=== PATIENT | female | born 1950 | race Caucasian/White ===

== ENCOUNTER 2017-03-04 09:08 | Emergency (ER) | payer MEDICARE, OTHER ==
[~2017-03-04] VITALS: Ht 157.5 cm; Wt 79.8 kg
[~2017-03-04 09:08] MED LIST: ACTOS15 MG OR; ADVIL200 MG OR; AMLODIPINE5 MG PO; AMOXICILLIN500 M1 OR; AMOXICILLIN500 MG OR; ASPIRIN81 M1 OR; ATENOLOL25 MG PO; AUGMENTIN875 MG OR; AVALIDE1 TA1 OR; BABY ASPIRIN81 MG PO; BACTRIM DS1 TAB OR; BACTRIM DS1 TAB PO; BACTROBAN2 % EX; BENAZEPRIL10 M1 PO; BENAZEPRIL5 MG PO; CIPRO500 MG OR; CLINDAMYCIN150 MG PO; CRESTOR20 MG PO; DIGITEK0.25 MG OR; ECOTRIN325 MG OR; ENALAPRIL2.5 MG OR; FLEXERIL OR; GLUCOTROL XL5 MG OR; HUMULIN R1 M1 SC; IRON; LIPITOR20 MG OR; LORTAB 5 OR; LORTAB5 OR; LOTENSIN HCT1 TA3 OR; MAGNESIUM200 MG OR; METFORMIN1000 MG PO; METFORMIN500 M1 OR; METOPROLOL25 MG OR; METOPROLOL50 MG OR; MYCOSTATIN100000 MG EX; NAPROSYN500 MG OR; NOVOLOG MIX100 U/ML SC; PEPCID AC20 MG OR; PLAVIX75 MG OR; PLAVIX75 MG PO; PRAVACHOL20 MG OR; SANTYL250 MG/GM EX; SIMVASTATIN5 MG OR; ST JOSEPH75 MG OR; ULTRAM50 MG OR; [UNRECOGNIZED DRUG - SUPPLY] EX
[2017-03-04 10:43] LABS: URINE BILIRUBIN - DIPSTICK NEGATIVE (NEGATIVE); URINE CLARITY CLEAR; URINE COLOR YELLOW; URINE GLUCOSE - DIPSTICK >=1000 mg/dL (NEGATIVE); URINE KETONE NEGATIVE (NEGATIVE); URINE LEUK ESTERASE TRACE (Negative); URINE NITRITE - DIPSTICK NEGATIVE (Negative); URINE PH 5.5 (4.5-8.0); URINE PROTEIN - DIPSTICK NEGATIVE (NEG-TRACE); URINE UROBILINOGEN - DIPSTICK 0.2 E.U./dL (0.2)
[2017-03-04 10:57] LABS: ALBUMIN 3.9 g/dL (3.2-5.0); ALKALINE PHOSPHATASE 51 u/l (38-126); ANION GAP 13 (6-22 (CALC)); BILIRUBIN, TOTAL 0.4 mg/dL (0.0-1.4); BUN 25 mg/dL (8-23); BUN/CREATININE RATIO 28 (12-20 (CALC)); CALCIUM 9.3 mg/dL (8.4-10.2); CARBON DIOXIDE 25 mmol/l (22-30); CHLORIDE 99 mmol/l (95-108); CREATININE 0.9 mg/dL (0.5-1.0); GFR > 60 ML/MIN (>=60 (CALC)); GFR FOR AFR.AMER. > 60 ML/MIN (>=60 (CALC)); GLUCOSE 405 mg/dL (82-115); HEMATOCRIT 32.4 % (37.0-47.0); HEMOGLOBIN 10.4 g/dl (12.0-16.0); IMMATURE GRANULOCYTES 0.4 % (0.0-1.0); MANUAL DIFFERENTIAL YES; MEAN CELL VOLUME 87.6 fL CALC (80.0-100.0); MEAN CORPUSCULAR HGB 28.1 pG CALC (26.0-32.0); MEAN CORPUSCULAR HGB CONC 32.1 g/L CALC (32.0-36.0); PLATELET COUNT 153 thou/uL (130-400); POTASSIUM 4.7 mmol/l (3.5-5.1); RED CELL DISTRI WIDTH 13.7 % (11.5-15.5); SGOT/AST 15 u/l (9-36); SGPT/ALT 29 u/l (11-66); SODIUM 132 mmol/l (137-146); TOTAL PROTEIN 6.4 g/dL (6.3-8.2)
[2017-03-04 11:23] LABS: URINE BLOOD DIPSTICK TRACE (NEGATIVE)
[2017-03-04 11:24] LABS: URINE EPITHELIAL CELLS RARE EPI/hpf (0-FEW); URINE RBC 0-2 RBC/hpf (0-5); URINE WBC 0-2 WBC/hpf (0-5)
[2017-03-04 12:07] VITALS: BP 167/63
== END 2017-03-04 12:45 | disposition home or self-care (01) ==
LOC: ED 09:08
PROVIDERS: Emergency Medicine
DX: E11.65 Type 2 diabetes mellitus with hyperglycemia (principal); Z91.14 Patient's other noncompliance with medication regimen; R22.32 Localized swelling, mass and lump, left upper limb

== ENCOUNTER 2018-02-26 17:46 | Emergency (ER) | payer MEDICARE, OTHER ==
[~2018-02-26] VITALS: Ht 154.9 cm; Wt 100.0 kg
[~2018-02-26 17:46] MED LIST changes: +ANASTROZOLE1 MG PO; +B-12 COMPL1000 MCG/M IM; +EMLA CREAM5 GM/TUBE EX; +GLUCOTROL5 MG PO; +JANUVIA50 MG PO; +LIPITOR20 MG PO; +LOTREL1 CA4 PO; +MAXZIDE-2537.5 MG/TA PO; +METOPROL TAR25 MG PO; +TRAMADOL HCL50 MG PO
[2018-02-26 18:46] LABS: HEMATOCRIT 34.4 % (37.0-47.0); HEMOGLOBIN 10.8 g/dl (12.0-16.0); IMMATURE GRANULOCYTES 0.3 % (0.0-1.0); MEAN CELL VOLUME 84.7 fL CALC (80.0-100.0); MEAN CORPUSCULAR HGB 26.6 pG CALC (26.0-32.0); MEAN CORPUSCULAR HGB CONC 31.4 g/L CALC (32.0-36.0); PLATELET COUNT 190 thou/uL (130-400); RED BLOOD COUNT 4.06 mill/uL (4.20-5.60); RED CELL DISTRI WIDTH 14.9 % (11.5-15.5)
[2018-02-26 19:04] LABS: ALBUMIN 4.2 g/dL (3.2-5.0); ALKALINE PHOSPHATASE 42 u/l (38-126); BILIRUBIN, TOTAL 0.3 mg/dL (0.0-1.4); BUN 30 mg/dL (8-23); BUN/CREATININE RATIO 24 (12-20 (CALC)); CARBON DIOXIDE 23 mmol/l (22-30); CHLORIDE 106 mmol/l (95-108); CREATININE 1.3 mg/dL (0.5-1.0); GFR 41 ML/MIN (>=60 (CALC)); GFR FOR AFR.AMER. 50 ML/MIN (>=60 (CALC)); SGOT/AST 13 u/l (9-36); SGPT/ALT 28 u/l (11-66); SODIUM 141 mmol/l (137-146); TOTAL PROTEIN 7.1 g/dL (6.3-8.2)
[2018-02-26 19:11] LABS: MANUAL DIFFERENTIAL YES
[2018-02-26 19:15] LABS: ANION GAP 17 (6-22 (CALC)); POTASSIUM 5.3 mmol/l (3.5-5.1)
[2018-02-26 19:16] LABS: MYOGLOBIN 38 ng/mL (0 - 62)
[2018-02-26 20:02] LABS: URINE BILIRUBIN - DIPSTICK NEGATIVE (NEGATIVE); URINE BLOOD DIPSTICK TRACE-INTACT (NEGATIVE); URINE COLOR YELLOW; URINE GLUCOSE - DIPSTICK NEGATIVE (NEGATIVE); URINE KETONE TRACE mg/dL (NEGATIVE); URINE NITRITE - DIPSTICK NEGATIVE (Negative); URINE PROTEIN - DIPSTICK NEGATIVE (NEG-TRACE); URINE UROBILINOGEN - DIPSTICK 0.2 E.U./dL (0.2)
[2018-02-26 20:05] LABS: URINE CLARITY SL CLOUDY; URINE LEUK ESTERASE MODERATE (NEGATIVE)
[2018-02-26 20:10] LABS: URINE SQUAMOUS EPITHELIAL CELL MODERATE EPI/hpf (0-FEW); URINE WBC 20-50 WBC/hpf (0-5)
[2018-02-26] MEDS ORDERED: MECLIZINE25 MG PO (20:16)
[2018-02-26] MEDS ORDERED: BACTRIM DS1 TAB PO (20:20)
[2018-02-26 20:24] VITALS: BP 129/64
== END 2018-02-26 20:33 | disposition home or self-care (01) ==
LOC: ED 17:46
PROVIDERS: Family Medicine
DX: H81.10 Benign paroxysmal vertigo, unspecified ear (principal); N30.90 Cystitis, unspecified without hematuria; I10 Essential (primary) hypertension; I25.10 Atherosclerotic heart disease of native coronary artery without angina pectoris; E11.9 Type 2 diabetes mellitus without complications; E78.5 Hyperlipidemia, unspecified; E53.9 Vitamin B deficiency, unspecified; C95.90 Leukemia, unspecified not having achieved remission; B96.20 Unspecified Escherichia coli [E. coli] as the cause of diseases classified elsewhere; Z86.73 Personal history of transient ischemic attack (TIA), and cerebral infarction without residual deficits; Z85.3 Personal history of malignant neoplasm of breast; Z95.1 Presence of aortocoronary bypass graft; R94.31 Abnormal electrocardiogram [ECG] [EKG]

== ENCOUNTER 2019-10-09 12:59 | Emergency (ER) | payer MEDICARE, OTHER ==
[~2019-10-09 12:59] MED LIST changes: +MECLIZINE25 MG PO
[2019-10-09] MEDS ORDERED: AZITHROMYCIN500 MG PO (13:39)
[2019-10-09] MEDS ORDERED: AMLOD/BENAZP1 CA5 PO (13:44)
[2019-10-09] MEDS ORDERED: AMLODIPINE BESY10 MG PO (13:45)
[2019-10-09] MEDS ORDERED: IBRANCE PO (13:45)
[2019-10-09] MEDS ORDERED: BENAZEPRIL40 M1 PO (13:46)
[2019-10-09] MEDS ORDERED: JANUVIA50 MG PO (13:46)
[2019-10-09] MEDS ORDERED: MAXZIDE PO (13:46)
[2019-10-09] MEDS ORDERED: METFORMIN HCL1000 MG PO (13:46)
[2019-10-09] MEDS ORDERED: LOPRESSOR25 M1 PO (13:46)
[2019-10-09] MEDS ORDERED: CLOPIDOGREL75 MG PO (13:47)
[2019-10-09 13:55] VITALS: BP 147/64
== END 2019-10-09 13:55 | disposition home or self-care (01) ==
LOC: ED 12:59
DX: J02.9 Acute pharyngitis, unspecified (principal); I10 Essential (primary) hypertension; I25.10 Atherosclerotic heart disease of native coronary artery without angina pectoris; E11.9 Type 2 diabetes mellitus without complications; C95.90 Leukemia, unspecified not having achieved remission; C50.912 Malignant neoplasm of unspecified site of left female breast; Z86.73 Personal history of transient ischemic attack (TIA), and cerebral infarction without residual deficits; Z95.1 Presence of aortocoronary bypass graft; Z79.899 Other long term (current) drug therapy; Z90.12 Acquired absence of left breast and nipple

== ENCOUNTER 2022-02-12 08:46 | Emergency (ER) | payer MEDICARE, OTHER ==
[~2022-02-12] VITALS: Ht 157.5 cm; Wt 74.5 kg
[2022-02-12] VITALS (60 sets, daily range): BP systolic 62–159; BP diastolic 27–81
[~2022-02-12 08:46] MED LIST changes: +AFINITOR10 MG PO; +AMLOD/BENAZP1 CA5 PO; +AMLODIPINE BESY10 MG PO; +AROMASIN25 MG PO; +AZITHROMYCIN500 MG PO; +BENAZEPRIL40 M1 PO; +CLOPIDOGREL75 MG PO; +DOXYCYCLINE100 MG PO; +GLIPIZIDE5 M2 PO; +IBRANCE PO; +JANUVIA100 MG PO; +LOPRESSOR25 M1 PO; +LOPRESSOR25 MG PO; +MAXZIDE PO; +MEDDOSEPAK PO; +METFORMIN HCL1000 MG PO; +METHIMAZOLE5 MG PO; +PROVENTIL0.083 % IN; +TAM75CAP PO; +TIZANIDINE2 MG PO
[2022-02-12 09:42] LABS: HEMATOCRIT 30.5 % (37.0-47.0); HEMOGLOBIN 9.7 g/dl (12.0-16.0); IMMATURE GRANULOCYTES 0.2 % (0.0-5.0); MEAN CELL VOLUME 92.7 fL CALC (80.0-100.0); MEAN CORPUSCULAR HGB 29.5 pG CALC (26.0-32.0); MEAN CORPUSCULAR HGB CONC 31.8 g/dL CAL (32.0-36.0); RED BLOOD COUNT 3.29 mill/uL (4.20-5.60); RED CELL DISTRI WIDTH 15.8 % (11.5-15.5)
[2022-02-12 09:46] LABS: BILIRUBIN, TOTAL 0.6 mg/dL (0.0-1.4); CREATININE 1.4 mg/dL (0.5-1.0); MAGNESIUM 1.9 mg/dL (1.6-2.3); POTASSIUM 4.3 mmol/l (3.5-5.1); TOTAL PROTEIN 5.5 g/dL (6.3-8.2)
[2022-02-12 09:47] LABS: PLATELET COUNT 122 thou/uL (130-400)
[2022-02-12 09:48] LABS: MANUAL DIFFERENTIAL YES
[2022-02-12 10:15] LABS: URINE BILIRUBIN - DIPSTICK NEGATIVE (NEGATIVE); URINE BLOOD DIPSTICK SMALL (NEGATIVE); URINE COLOR YELLOW; URINE GLUCOSE - DIPSTICK >=1000 mg/dL (NEGATIVE); URINE KETONE 40 mg/dL (NEGATIVE); URINE LEUK ESTERASE NEGATIVE (NEGATIVE); URINE PH 5.5 (4.5-8.0); URINE PROTEIN - DIPSTICK 30 mg/dL (NEG-TRACE); URINE UROBILINOGEN - DIPSTICK 0.2 E.U./dL (0.2)
[2022-02-12 10:17] LABS: URINE NITRITE - DIPSTICK NEGATIVE (Negative)
[2022-02-12 10:18] LABS: URINE EPITHELIAL CELLS MODERATE EPI/hpf (0-FEW); URINE RBC 0-2 RBC/hpf (0-5)
== END 2022-02-12 14:23 | disposition short-term general hospital (02) ==
LOC: ED 08:46 → ED-I 10:00 → ED 14:23
PROVIDERS: Family Medicine
PROC: 5A12012 Performance of Cardiac Output, Single, Manual (ICD-10-PCS; principal; 2022-02-12)
PROC: 0BH17EZ Insertion of Endotracheal Airway into Trachea, Via Natural or Artificial Opening (ICD-10-PCS; 2022-02-12)
PROC: 5A1935Z Respiratory Ventilation, Less than 24 Consecutive Hours (ICD-10-PCS; 2022-02-12)
PROC: 02HV33Z Insertion of Infusion Device into Superior Vena Cava, Percutaneous Approach (ICD-10-PCS; 2022-02-12)
PROC: 0T9B70Z Drainage of Bladder with Drainage Device, Via Natural or Artificial Opening (ICD-10-PCS; 2022-02-12)
DX: I21.4 Non-ST elevation (NSTEMI) myocardial infarction (principal); U07.1 COVID-19; J12.82 Pneumonia due to coronavirus disease 2019; I46.2 Cardiac arrest due to underlying cardiac condition; S00.83XA Contusion of other part of head, initial encounter; I10 Essential (primary) hypertension; I25.10 Atherosclerotic heart disease of native coronary artery without angina pectoris; E11.9 Type 2 diabetes mellitus without complications; Z86.73 Personal history of transient ischemic attack (TIA), and cerebral infarction without residual deficits; E78.5 Hyperlipidemia, unspecified; C95.90 Leukemia, unspecified not having achieved remission; W18.30XA Fall on same level, unspecified, initial encounter; Y92.009 Unspecified place in unspecified non-institutional (private) residence as the place of occurrence of the external cause; Z79.84 Long term (current) use of oral hypoglycemic drugs; Z95.1 Presence of aortocoronary bypass graft
CPT/HCPCS: J1650; Q9967; S0073